=== PATIENT | female | born 1995 ===

== ENCOUNTER 2020-08-16 11:34 | Emergency (ER) | payer SELFPAY ==
--- NOTE | 2020-08-16 11:44 | Emergency Department Report ---
Blank Doc - Documentation Documentation: [id number] female that presents with pelvic pain and vaginal bleeding. This initial assessment/diagnostic orders/clinical plan/treatment(s) is/are subject to change based on patient's health status, clinical progression and re- assessment by fellow clinical providers in the ED. Further treatment and workup at subsequent clinical providers discretion. Patient/guardians urged not to elope from the ED as their condition may be serious if not clinically assessed and managed. Initial orders include: 1- Patient sent to [facility] for further evaluation and treatment 2- labs 3- UA
[2020-08-16 11:46] VITALS: BP 133/83
[2020-08-16 12:21] LABS: Basophils # (Auto) 0.1 K/mm3 (0.0-0.1); Basophils % (Auto) 1.1 % (0.0-1.8); Eosinophils # (Auto) 0.3 K/mm3 (0.0-0.4); Eosinophils % (Auto) 3.3 % (0.0-4.3); Hematocrit 40.8 % (30.3-42.9); Hemoglobin 13.4 gm/dl (10.1-14.3); Lymphocytes # (Auto) 3.3 K/mm3 (1.2-5.4); Mean Corpuscular HGB Conc 33 % (30-34); Mean Corpuscular Volume 88 fl (79-97); Monocytes # (Auto) 0.5 K/mm3 (0.0-0.8); Monocytes % (Auto) 4.8 % (0.0-7.3); Platelet Count 282 K/mm3 (140-440); Red Blood Count 4.65 M/mm3 (3.65-5.03); Red Cell Distribution Width 14.5 % (13.2-15.2)
[2020-08-16 12:36] LABS: Alanine Aminotransferase 21 units/L (7-56); Blood Urea Nitrogen 9 mg/dL (7-17); Calcium 9.4 mg/dL (8.4-10.2); Hemolysis Index 13
[2020-08-16 12:37] LABS: BUN/Creatinine Ratio 18
[2020-08-16 12:37] LABS: Bilirubin,Urine NEG (Negative); Blood,Urine LG (Negative); Color,Urine Yellow (Yellow); Mucus,Urine FEW /HPF; Protein,Urine <15 mg/dL mg/dL (Negative); Urobilinogen,Urine < 2.0 mg/dL (<2.0); WBC,Urine < 1.0 /HPF (0.0-6.0)
[2020-08-16] MEDS ORDERED: KETOROLAC 60 MG/2 ML INJ IM ONE (14:08)
--- NOTE | 2020-08-16 14:16 | Emergency Department Report ---
ED Female HPI - General Chief complaint: Vaginal Bleeding Stated complaint: HEMORRHAGE BLEEDING Time Seen by Provider: 08/16/20 11:43 Source: patient, educational sign language interpreter (language line) Mode of arrival: Ambulatory Limitations: No Limitations - History of Present Illness Initial comments: Language line used for Chinese interpretation Patient is reportedly a 24-year-old female but appears older than stated age. She presents to the emergency room with complaints of heavy vaginal bleeding and lower pelvic pain that began 3 days ago. She states that she is changing her pad approximately every 30 minutes. She has not changed her pad that frequently since being in the emergency department. She states that she is also passing large clots. She has never been on any control. She states that typically her cycles last approximately 3 to 4 days but does not have heavy bleeding. She denies any nausea, vomiting, diarrhea, fever, dysuria, abnormal vaginal discharge. No past medical history. No allergies medications. She states her last menstrual cycle was July 08, 2020. she does not have an LAP W[facility]DER. - Related Data Previous Rx's Medication Instructions Recorded Last Taken Type Naproxen [EC-Naprosyn] 500 mg PO BID PRN #14 tablet. 08/16/20 Unknown Rx medroxyPROGESTERone ACETATE 10 mg PO QDAY 10 Days #10 tablet 08/16/20 Unknown Rx [Provera] Allergies Allergy/AdvReac Type Severity Reaction Status Date / Time No Known Allergies Allergy Unverified 08/16/20 11:47 ED Review of Systems ROS: Stated complaint: HEMORRHAGE BLEEDING Other details as noted in HPI Comment: All other systems reviewed and negative ED Past Medical Hx - Past Medical History Previous Medical History?: No - Surgical History Past Surgical History?: No - Medications Home Medications: Home Medications Medication Instructions Recorded Confirmed Last Taken Type Naproxen [EC-Naprosyn] 500 mg PO BID PRN #14 tablet. 08/16/20 Unknown Rx medroxyPROGESTERone ACETATE 10 mg PO QDAY 10 Days #10 tablet 08/16/20 Unknown Rx [Provera] ED Physical Exam - General Limitations: No Limitations General appearance: alert, in no apparent distress - Head Head exam: Present: atraumatic, normocephalic - Eye Eye exam: Present: normal appearance - ENT ENT exam: Present: mucous membranes moist - Respiratory Respiratory exam: Present: normal lung sounds bilaterally. Absent: respiratory distress, wheezes, rales, rhonchi, stridor, chest wall tenderness, accessory muscle use, decreased breath sounds, prolonged expiratory - Cardiovascular Cardiovascular Exam: Present: regular rate, normal rhythm, normal heart sounds. Absent: systolic murmur, diastolic murmur, rubs, gallop - GI/Abdominal GI/Abdominal exam: Present: soft, normal bowel sounds. Absent: distended, tenderness, guarding, rebound, rigid - Neurological Exam Neurological exam: Present: alert, oriented X3 - Psychiatric Psychiatric exam: Present: normal affect, normal mood - Skin Skin exam: Present: warm, dry, intact ED Course Vital Signs 08/16/20 11:45 Temperature 98.0 F Pulse Rate 88 Respiratory 20 Rate Blood Pressure 133/83 [Right] O2 Sat by Pulse 98 Oximetry ED Medical Decision Making - Lab Data Result diagrams: 08/16/20 12:00 08/16/20 12:00 Lab Results 08/16/20 08/16/20 08/16/20 Range/Units 12:00 12:00 12:00 WBC 10.0 (4.5-11.0) K/mm3 RBC 4.65 (3.65-5.03) M/mm3 Hgb 13.4 (10.1-14.3) gm/dl Hct 40.8 (30.3-42.9) % MCV 88 (79-97) fl MCH 29 (28-32) pg MCHC 33 (30-34) % RDW 14.5 (13.2-15.2) % Plt Count 282 (140-440) K/mm3 Lymph % (Auto) 33.0 (13.4-35.0) % [place] % (Auto) 4.8 (0.0-7.3) % Eos % (Auto) 3.3 (0.0-4.3) % Baso % (Auto) 1.1 (0.0-1.8) % Lymph # (Auto) 3.3 (1.2-5.4) K/mm3 [place] # (Auto) 0.5 (0.0-0.8) K/mm3 Eos # (Auto) 0.3 (0.0-0.4) K/mm3 Baso # (Auto) 0.1 (0.0-0.1) K/mm3 Seg Neutrophils % 57.8 (40.0-70.0) % Seg Neutrophils # 5.7 (1.8-7.7) K/mm3 Sodium 139 (137-145) mmol/L Potassium 4.1 (3.6-5.0) mmol/L Chloride 104.1 (98-107) mmol/L Carbon Dioxide 26 (22-30) mmol/L Anion Gap 13 mmol/L BUN 9 (7-17) mg/dL Creatinine 0.5 L (0.6-1.2) mg/dL Estimated GFR > 60 ml/min BUN/Creatinine Ratio 18 % Glucose 89 (65-100) mg/dL Calcium 9.4 (8.4-10.2) mg/dL Total Bilirubin 0.20 (0.1-1.2) mg/dL AST 19 (5-40) units/L ALT 21 (7-56) units/L Alkaline Phosphatase 100 (35-129) units/L Total Protein 7.3 (6.3-8.2) g/dL Albumin 4.0 (3.9-5) g/dL Albumin/Globulin Ratio 1.2 % HCG, Quant < 2 (0-4) mIU/mL Urine Color (Yellow) Urine Turbidity (Clear) Urine pH (5.0-7.0) Ur Specific [place] (1.003-1.030) Urine Protein (Negative) mg/dL Urine Glucose (UA) (Negative) mg/dL Urine Ketones (Negative) mg/dL Urine Blood (Negative) Urine Nitrite (Negative) Urine Bilirubin (Negative) Urine Urobilinogen (<2.0) mg/dL Ur Leukocyte Esterase (Negative) Urine WBC (Auto) (0.0-6.0) /HPF Urine RBC (Auto) (0.0-6.0) /HPF U Epithel Cells (Auto) (0-13.0) /HPF Urine Mucus /HPF 10/26/20 Range/Units Unknown WBC (4.5-11.0) K/mm3 RBC (3.65-5.03) M/mm3 Hgb (10.1-14.3) gm/dl Hct (30.3-42.9) % MCV (79-97) fl MCH (28-32) pg MCHC (30-34) % RDW (13.2-15.2) % Plt Count (140-440) K/mm3 Lymph % (Auto) (13.4-35.0) % [place] % (Auto) (0.0-7.3) % Eos % (Auto) (0.0-4.3) % Baso % (Auto) (0.0-1.8) % Lymph # (Auto) (1.2-5.4) K/mm3 [place] # (Auto) (0.0-0.8) K/mm3 Eos # (Auto) (0.0-0.4) K/mm3 Baso # (Auto) (0.0-0.1) K/mm3 Seg Neutrophils % (40.0-70.0) % Seg Neutrophils # (1.8-7.7) K/mm3 Sodium (137-145) mmol/L Potassium (3.6-5.0) mmol/L Chloride (98-107) mmol/L Carbon Dioxide (22-30) mmol/L Anion Gap mmol/L BUN (7-17) mg/dL Creatinine (0.6-1.2) mg/dL Estimated GFR ml/min BUN/Creatinine Ratio % Glucose (65-100) mg/dL Calcium (8.4-10.2) mg/dL Total Bilirubin (0.1-1.2) mg/dL AST (5-40) units/L ALT (7-56) units/L Alkaline Phosphatase (35-129) units/L Total Protein (6.3-8.2) g/dL Albumin (3.9-5) g/dL Albumin/Globulin Ratio % HCG, Quant (0-4) mIU/mL Urine Color Yellow (Yellow) Urine Turbidity Clear (Clear) Urine pH 6.0 (5.0-7.0) Ur Specific [place] 1.014 (1.003-1.030) Urine Protein <15 mg/dl (Negative) mg/dL Urine Glucose (UA) Neg (Negative) mg/dL Urine Ketones Neg (Negative) mg/dL Urine Blood Lg (Negative) Urine Nitrite Neg (Negative) Urine Bilirubin Neg (Negative) Urine Urobilinogen < 2.0 (<2.0) mg/dL Ur Leukocyte Esterase Neg (Negative) Urine WBC (Auto) < 1.0 (0.0-6.0) /HPF Urine RBC (Auto) 107.0 (0.0-6.0) /HPF U Epithel Cells (Auto) 2.0 (0-13.0) /HPF Urine Mucus Few /HPF - Medical Decision Making Language line used for Chinese interpretation Patient is reportedly a 24-year-old female but appears older than stated age. She presents to the emergency room with complaints of heavy vaginal bleeding and lower pelvic pain that began 3 days ago. She states that she is changing her pad approximately every 30 minutes. She has not changed her pad that frequently since being in the emergency department. She states that she is also passing large clots. She has never been on any control. She states that typically her cycles last approximately 3 to 4 days but does not have heavy bleeding. She denies any nausea, vomiting, diarrhea, fever, dysuria, abnormal vaginal discharge. No past medical history. No allergies medications. She states her last menstrual cycle was July 08, 2020. she does not have an LAP WELDER. Vitals are stable. On exam abdomen is soft, nondistended, no tenderness, no guarding, no rebound, no rigidity, normal bowel sounds, no peritoneal signs. Labs are normal. H&H is normal. hCG quant is less than 2. UA shows red blood cells but no evidence of UTI. Discussed all findings with patient and answered questions. Patient given Toradol IM while in the emergency department and symptoms improved. Patient does not have any known contraindications to Provera. Offered patient Provera treatment and she states that she would like to take medication. Patient given prescription for naproxen and Provera. Discussed strict return precautions with patient. Discussed the importance of [facility] follow-up with patient. Advised patient Please take m edication as prescribed. Increase your water intake. Follow-up with LAP WELDER. It is very important that you follow-up. Return to emergency room immediately for any new or worsening symptoms including but not limited to worsening bleeding, worsening pain, lightheadedness, feeling like passing out, shortness of breath, palpitations, etc. - Differential Diagnosis Fibroids, endometriosis, adenomyosis, hemorrhagic ovarian cyst, AUB Critical care attestation.: If time is entered above; I have spent that time in minutes in the direct care of this critically ill patient, excluding procedure time. ED Disposition Clinical Impression: Dysmenorrhea Menorrhagia Qualifiers: Menorrhagia type: with regular cycle Qualified Code(s): N92.0 - Excessive and frequent menstruation with regular cycle Disposition: DC-01 TO HOME OR SELFCARE Is pt being admited?: No Does the pt Need Aspirin: No Condition: Stable Instructions: Dysmenorrhea (ED), Menorrhagia (ED) Additional Instructions: Please take medication as prescribed. Increase your water intake. Follow-up with [facility]. It is very important that you follow-up. Return to emergency room immediately for any new or worsening symptoms including but not limited to worsening bleeding, worsening pain, lightheadedness, feeling like passing out, shortness of breath, palpitations, etc. [place] los medicamentos segn lo prescrito. Incrementa tu ingesta de agua. Seguimiento con obstetra / gineclogo. Es muy importante que taurus un s eguimiento. Regrese a la cherelle de emergencias de inmediato por cualquier sntoma nuevo o que empeore, incluidos, entre otros, el empeoramiento del sangrado, el empeoramiento del dolor, el aturdimiento, la sensacin de desmayo, falta de aire, palpitaciones, etc. Prescriptions: Naproxen [EC-Naprosyn] 500 mg PO BID PRN #14 tablet.dr MATAMOROS Reason: pain medroxyPROGESTERone ACETATE [Provera] 10 mg PO QDAY 10 Days #10 tablet Referrals: [facility] [Provider Group] - 2-3 Days [facility] [Provider Group] - 2-[address] [facility] [Provider Group] - 2-3 Days [facility] [Outside] - 2-3 Days Time of Disposition: 14:15 Print Language: LATVIAN
== END 2020-08-16 14:30 | disposition home or self-care (01) ==
LOC: ED 11:34
DX: N94.6 Dysmenorrhea, unspecified (principal); N92.0 Excessive and frequent menstruation with regular cycle; Z79.899 Other long term (current) drug therapy
CPT/HCPCS: 36415; 80053; 81001; 84702; 85025; 96372; 99283; J1885